=== PATIENT | female | born 1965 | race Caucasian/White ===

== ENCOUNTER 2019-02-24 15:23 | Emergency (ER) | payer OTHER ==
[~2019-02-24] VITALS: Ht 167.6 cm; Wt 70.5 kg
[2019-02-24] MEDS ORDERED: ONDANSETRON ODT 4 MG ONE (15:59)
[2019-02-24] MEDS ORDERED: KETOROLAC 30 MG/1 ML ONE (15:59)
[2019-02-24] MEDS ORDERED: OXYcodone/APAP 5/325MG TABLET ONE (15:59)
[2019-02-24] MEDS ORDERED: DIAZEPAM 5 MG TABLET ONE (15:59)
[2019-02-24] MEDS ORDERED: ONDANSETRON ODT 4 MG PO ONE (16:00)
[2019-02-24] MEDS ORDERED: DIAZEPAM 5 MG TABLET PO ONE (16:00)
[2019-02-24] MEDS ORDERED: OXYcodone/APAP 5/325MG TABLET PO ONE (16:00)
[2019-02-24] MEDS ORDERED: KETOROLAC 30 MG/1 ML IM ONE (16:00)
[2019-02-24 17:20] VITALS: BP 124/68
== END 2019-02-24 17:22 | disposition home or self-care (01) ==
LOC: ED 17:20
DX: S39.012A Strain of muscle, fascia and tendon of lower back, initial encounter (principal); X58.XXXA Exposure to other specified factors, initial encounter; Y93.89 Activity, other specified; Y92.89 Other specified places as the place of occurrence of the external cause; Y99.8 Other external cause status
CPT/HCPCS: 72110; 96372; 99284; J1885; Q0162